=== PATIENT | male | born 1960 | race Caucasian/White ===

== ENCOUNTER 2018-05-21 09:22 | Day surgery (SDC) | payer OTHER ==
[2018-05-19 09:20] VITALS: BMI 29.9
[2018-05-21] MEDS ORDERED: PROPOFOL 20 ML ONE ×2 (10:50)
[2018-05-21] MEDS ORDERED: LIDOCAINE HCL/PF 2% SDV 5ML VIAL ONE (10:58)
[2018-05-21 11:40] VITALS: PULSE 72
[2018-05-21 11:48] VITALS: BP 130/72; TEMP 98.4
--- NOTE | 2018-05-23 11:58 | PATH ---
Surgical Pathology Report Patient Name: BARBIE WELLER [facility]. Rec. #: [id number] /Age/Gender: 1960 (Age: 58) / M Account: [id number] Location: [facility] Taken: 05/21/2018 Received: 05/21/2018 Reported: 05/23/2018 Physicians: Heather Cadet M.D. Specimen(s) Received BX RECTUM Clinical History Screening Postoperative diagnosis: Hemorrhoids, erythema Final Diagnosis RECTUM, BIOPSY: COLONIC MUCOSA WITH FOCAL RECENT HEMORRHAGE AND MILD ACUTE INFLAMMATION IN THE LAMINA PROPRIA, ACUTE CRYPTITIS, AND REACTIVE LYMPHOID AGGREGATE. COMMENT: THIS MAY REPRESENT ACUTE PROCTITIS. CLINICAL CORRELATION IS SUGGESTED. Electronically Signed Madeline Correa M.D. Gross Description Received in formalin, labeled "biopsy at rectum" is a malik, irregular portion of soft tissue measuring 0.3 cm. in greatest dimension. The specimen is submitted in toto in one cassette. /05/22/2018 saudi05/22/2018
== END 2018-05-21 11:48 | disposition home or self-care (01) ==
LOC: FASU-ENDO 09:22
PROVIDERS: ATTEND Internal Medicine Gastroenterology
PROC: 0DBP8ZX Excision of Rectum, Via Natural or Artificial Opening Endoscopic, Diagnostic (ICD-10-PCS; principal; 2018-05-21 10:53)
DX: Z86.010 Personal history of colon polyps (principal); K64.1 Second degree hemorrhoids; K62.89 Other specified diseases of anus and rectum
CPT/HCPCS: 88305-TC

== ENCOUNTER 2024-09-29 03:44 | Day surgery (SDC) | payer OTHER ==
[2024-09-29] MEDS ORDERED: ACETAMINOPHEN INJECTION 100 ML ONE ×2 (04:39→15:17)
[2024-09-29] MEDS ORDERED: MAG HYDROX/AL HYDROX/SIMETH 30 ML UNIT-DOSE CUP ONE (04:40)
[2024-09-29] MEDS ORDERED: FAMOTIDINE 20 MG/50 ML IVPB 20 MG/50 ML MG IVPB ONE (04:40)
[2024-09-29] MEDS: ACETAMINOPHEN 1000 MG/100 ML BAG IVPB ONE (05:20)
[2024-09-29] MEDS: MAG HYDROX/AL HYDROX/SIMETH 30 ML UNIT-DOSE CUP PO ONE (05:23)
[2024-09-29] MEDS: FAMOTIDINE 20 MG/50 ML IVPB 20 MG/50 ML MG IVPB ONE (05:23)
[2024-09-29 06:05] LABS: INR 0.94 (0.83-1.09); PROTHROMBIN TIME (PATIENT) 10.2 SEC (9.7-13.0)
[2024-09-29 06:08] LABS: ACTIVATED PTT 26.5 SECONDS (25.2-36.5)
[2024-09-29 06:09] LABS: LACTIC ACID 2.1 mmol/L (0.4-2.0)
[2024-09-29 06:23] LABS: ABSOLUTE IMMATURE GRANULOCYTES 0.05 x10^3/uL (0.0-0.031); BASOPHILS # 0.05 x10^3/uL (0.01-0.08); EOSINOPHIL % 1.1 % (0.8-7.0); HEMATOCRIT 42.4 % (40.1-51.0); HEMOGLOBIN 14.7 g/dL (13.7-17.5); MCHC 34.7 g/dl (32.3-36.5); MEAN CELL VOLUME 93.4 fl (79.0-92.2); MEAN PLT VOLUME 10.7 fl (9.4-12.4); MONOCYTE # 0.59 x10^3/uL (0.30-0.82); MONOCYTE % 6.8 % (5.3-12.2); PLATELET COUNT 237 x10^3/uL (163-337); RDW 13.1 % (12.2-16.4)
[2024-09-29 06:24] LABS: POTASSIUM 3.8 mmol/L (3.5-5.1)
[2024-09-29 06:27] LABS: CALCIUM 8.6 mg/dL (8.5-10.1)
[2024-09-29 06:28] LABS: ALBUMIN 3.6 g/dl (3.4-5.0); BLOOD UREA NITROGEN 20.1 mg/dL (7-18); MAGNESIUM 1.9 mg/dL (1.8-2.4)
[2024-09-29 06:30] LABS: CREATININE 0.8 mg/dL (0.55-1.3)
[2024-09-29 06:32] LABS: BILIRUBIN,TOTAL 0.3 mg/dL (0.2-1); TOT PROT 6.7 g/dl (6.4-8.2)
[2024-09-29] MEDS: LACTATED RINGERS SOLUTION 1000 ML INFUS.BAG IV ONE (07:09)
[2024-09-29] MEDS ORDERED: oxyCODONE HCL 5 MG TABLET PO PRN ×4 (13:25→15:32)
[2024-09-29] MEDS ORDERED: PROMETHAZINE HCL 25 MG/1 ML VIAL IVPB PRN ×2 (13:25→15:32)
[2024-09-29] MEDS ORDERED: ONDANSETRON 4 MG/2 ML VIAL IVPUSH PRN ×2 (13:25→15:32)
[2024-09-29] MEDS ORDERED: BUPIVACAINE HCL/PF 0.25% (2.5MG/ML) 10 ML VIAL ONE (13:25)
[2024-09-29] MEDS ORDERED: ACETAMINOPHEN 1000 MG/100 ML BAG IVPB PRN (13:26)
[2024-09-29] MEDS ORDERED: LACTATED RINGERS SOLUTION 1,000 ML IV SCH (13:30)
[2024-09-29] MEDS ORDERED: DEXAMETHASONE SOD PHOSPHATE 4 MG/1 ML VIAL ONE (13:39)
[2024-09-29] MEDS ORDERED: ROCURONIUM BROMIDE 50 MG/5 ML SYRINGE ONE (13:39)
[2024-09-29] MEDS ORDERED: LIDOCAINE HCL 2% 100 MG/5 ML DISP.SYRIN ONE (13:39)
[2024-09-29] MEDS ORDERED: ONDANSETRON 4 MG/2 ML VIAL ONE (13:39)
[2024-09-29] MEDS ORDERED: SEVOFLURANE 250 ML BTL ONE (13:39)
[2024-09-29] MEDS ORDERED: PROPOFOL 40 ML ONE (13:39)
[2024-09-29] MEDS ORDERED: SUGAMMADEX SODIUM 200 MG/2 ML VIAL ONE (13:39)
[2024-09-29] MEDS ORDERED: MIDAZOLAM HCL 2 MG/2 ML SINGLE DOSE VIAL ONE (13:39)
[2024-09-29] MEDS ORDERED: CEFOXITIN SODIUM 2 GM IVPB ONE (13:44)
[2024-09-29] MEDS: cefOXitin SODIUM 1 GM VIAL (RESTRICTED TO ID) IVPB ONE (14:05)
[2024-09-29] MEDS: BUPIVACAINE HCL/PF 0.25% (2.5MG/ML) 10 ML VIAL IJ ONE (14:15)
[2024-09-29] MEDS: ACETAMINOPHEN 1000 MG/100 ML BAG IVPB PRN (15:35)
[2024-09-29] MEDS: LACTATED RINGERS SOLUTION 1,000 ML IV SCH (15:53)
[2024-09-29 16:43] VITALS: BMI 31.2
[2024-09-29 16:53] VITALS: RESP 18
[2024-09-29 18:31] VITALS: BP 138/75; PULSE 84; TEMP 97.9
[2024-09-29] MEDS ORDERED: ATORVASTATIN CA 20 MG TABLET (FP) PO SCH ×2 (22:00)
[2024-09-30] MEDS ORDERED: amLODIPine BESYLATE 5 MG TABLET (FP) PO SCH ×2 (10:00)
== END 2024-09-29 18:53 | disposition home or self-care (01) ==
LOC: JER 03:44 → JASUSAT 13:37 → J6S 16:28 → JASUSAT 18:53
PROVIDERS: ATTEND Surgery
PROC: 0FT44ZZ Resection of Gallbladder, Percutaneous Endoscopic Approach (ICD-10-PCS; principal; 2024-09-29 13:00)
DX: K81.0 Acute cholecystitis (principal)
CPT/HCPCS: 0241U-QW; 36415; 74021-TC-FY; 74177-TC; 76705-TC; 80053; 83605; 83690; 83735; 85025; 85610; 85730; 86850; 86900; 86901; 88304-TC; 93005; 93010; 94760; 99285-25; J0131; Q9967